=== PATIENT | male | born 1995 | race Caucasian/White ===

== ENCOUNTER 2018-10-01 16:13 | Emergency (ER) | payer MEDICAID ==
[~2018-10-01] VITALS: Ht 170.2 cm; Wt 76.7 kg
[2018-10-01 16:17] VITALS: Ht 170.2 cm; Wt 76.7 kg
[2018-10-01 19:33] VITALS: BP 130/85
[2018-10-05 05:13] LABS: RAPID PLASMA REAGIN Non Reactive (Non Reactive)
== END 2018-10-01 19:33 | disposition home or self-care (01) ==
LOC: ED 16:13
PROVIDERS: Emergency Medicine
DX: N45.1 Epididymitis (principal); N34.2 Other urethritis; J45.909 Unspecified asthma, uncomplicated
CPT/HCPCS: 87491; 87591; J0696; Q0092